=== PATIENT | female | born 1990 | race Two or more races ===

== ENCOUNTER 2016-04-09 18:36 | Emergency (ER) | payer SELFPAY ==
[~2016-04-09] VITALS: Ht 157.5 cm; Wt 81.6 kg
[2016-04-09 18:40] VITALS: BP 143/66
== END 2016-04-09 19:07 | disposition home or self-care (01) ==
LOC: ER 18:38
DX: R51 Headache (principal)
CPT/HCPCS: 99281; A4606; Z7610; Z7502